=== PATIENT | female | born 1955 | race Caucasian/White ===

== ENCOUNTER 2020-01-10 15:41 | Emergency (ER) | payer OTHER ==
[~2020-01-10] VITALS: Ht 165.1 cm; Wt 55.3 kg
[2020-01-10] MEDS ORDERED: DESYREL150 MG PO (16:28)
[2020-01-10] MEDS ORDERED: ZOFRAN ODT4 MG PO (17:29)
[2020-01-10 17:30] VITALS: BP 127/59
== END 2020-01-10 17:41 | disposition home or self-care (01) ==
LOC: ER 15:41
DX: F07.81 Postconcussional syndrome (principal); Z79.899 Other long term (current) drug therapy